=== PATIENT | male | born 1985 | race Caucasian/White ===

== ENCOUNTER → 2016-06-27 | Outpatient (CLI) | payer BC ==
--- NOTE | 2016-06-27 12:47 | REP ---
CT ABDOMEN AND PELVIS WITHOUT IV CONTRAST: CT abdomen and pelvis is performed without oral or IV contrast. Sagittal and coronal reconstruction images are performed. The visualized lung bases are clear. Liver, gallbladder, spleen, adrenals and pancreas are grossly unremarkable. No left renal calculi are seen and there is no left hydronephrosis. There is moderate right hydronephrosis caused by a 5 mm calculus in the distal right ureter at the level of the upper sacrum. The urinary bladder is not distended and not well evaluated. There is no abdominal aortic aneurysm with mild scattered atherosclerotic calcification. There is no adenopathy. There is no free air or free fluid. There is no bowel wall thickening. There is no evidence of appendicitis. IMPRESSION: There is a 5 mm calculus in the distal right ureter at the level of the sacrum. There is moderate right hydroureteronephrosis. Signed by Buzz García MD 06/27/2016 04:58 P
== END ==
LOC: M RAD 11:41
PROVIDERS: ATTEND Physician Assistant
DX: N13.1 Hydronephrosis with ureteral stricture, not elsewhere classified (principal); R11.10 Vomiting, unspecified; M54.5 Low back pain; R31.9 Hematuria, unspecified

== ENCOUNTER 2016-09-30 09:07 | Day surgery (SDC) | payer BC ==
[~2016-09-30] VITALS: Ht 165.1 cm; Wt 69.0 kg
[2016-09-30] MEDS ORDERED: NS 1,000 ML IV ONE ×2 (10:15→11:00)
[2016-09-30 10:29] LABS: BASO # 0.1 K/mm3 (0.0-0.2); BASO % 0.3 % (0.0-1.0); EOS # 0.3 K/mm3 (0.0-0.50); EOS % 1.3 % (0.0-3.0); LARGE UNSTAINED CELL # 0.2 K/mm3 (0.0-0.4); LARGE UNSTAINED CELL % 0.9 % (0.0-4.0); LYMPH # 1.6 K/mm3 (1.5-4.5); LYMPH % 6.9 % (24.0-44.0); MEAN CORPUSCULAR HEMOGLOBIN 29.9 pg (27.0-33.0); MEAN CORPUSCULAR HGB CONC 33.3 g/dl (32.0-36.5); MEAN CORPUSCULAR VOLUME 89.8 fl (80.0-96.0); MONO # 1.2 K/mm3 (0.0-0.8); MONO % 6.1 % (0.0-5.0); NEUTROPHILS % 84.5 % (36.0-66.0); PLATELET COUNT, AUTOMATED 328 k/mm3 (150-450); RED CELL DISTRIBUTION WIDTH 13.2 % (11.5-14.5)
--- NOTE | 2016-09-30 10:39 | REP ---
KUB, ONE VIEW: HISTORY: Mid right abdominal pain. Air is present in small and large intestine. There are no air fluid levels or dilated loops of intestine. There is no pneumoperitoneum. There is spina bifida occulta of S1. IMPRESSION: Nonspecific bowel gas pattern. Signed by Dannie Chua MD 09/30/2016 10:47 A
[2016-09-30 10:53] LABS: ALKALINE PHOSPHATASE 86 U/L (45-117); ALT/SGPT 43 U/L (12-78); ANION GAP 6 MEQ/L (8-16); AST/SGOT 18 U/L (15-37); BILIRUBIN,DIRECT 0.1 MG/DL (0.0-0.2); BILIRUBIN,TOTAL 0.8 MG/DL (0.2-1.0); BLOOD UREA NITROGEN 8 MG/DL (7-18); CALCIUM LEVEL 9.4 MG/DL (8.5-10.1); CARBON DIOXIDE LEVEL 30 MEQ/L (21-32); CHLORIDE LEVEL 104 MEQ/L (98-107); CREATININE FOR GFR 1.05 MG/DL (0.70-1.30); GLOMERULAR FILTRATION RATE > 60.0 (>60); GLUCOSE, FASTING 92 MG/DL (70-105); POTASSIUM SERUM 3.7 MEQ/L (3.5-5.1); SODIUM LEVEL 140 MEQ/L (136-145)
[2016-09-30] MEDS ORDERED: ISOVUE-370 76% 100ML VIAL (Q9967) As Ordered ONE (11:01)
[2016-09-30] MEDS ORDERED: PIPERACILLIN/TAZOBACTAM SOD 3.375 GM in D5W MINI-BAG PLUS 50 ML IV ONE (12:00)
--- NOTE | 2016-09-30 12:02 | REP ---
CT ABDOMEN AND PELVIS WITH IV CONTRAST: TECHNIQUE: Axial contrast enhanced images from the lung bases to the pubic symphysis using 100 mL Isovue 370 intravenous contrast material with multiplanar reformations. Visualized lung bases are clear. The liver, spleen, adrenals, pancreas and kidneys are normal in appearance. There is no adenopathy, free air or free fluid. There is dilatation of the appendix with diffuse thickening of its wall and surrounding streaky inflammation compatible with appendicitis. Mildly prominent right lower quadrant mesenteric lymph nodes are present. Urinary bladder is well distended and appears essentially unremarkable. There is a 5 mm calculus in the distal right ureter with minor right hydroureteronephrosis. IMPRESSION: Findings consistent with appendicitis with no free air or free fluid. There is a 5 mm calculus in the distal end of the right ureter with minor right hydroureteronephrosis. Signed by Buzz García MD 09/30/2016 01:42 P
[2016-09-30] MEDS ORDERED: TYLE325T5 PO (13:00)
[2016-09-30] MEDS ORDERED: LR 1,000 ML IV SCH (16:30)
[2016-09-30] MEDS: PIPERACILLIN/TAZOBACTAM SOD 3.375 GM in D5W MINI-BAG PLUS 50 ML IV SCH ×2 (17:00→23:05)
[2016-09-30] MEDS ORDERED: ZOSYN 3.375 GM VIAL (J2543) As Ordered ONE (18:19)
[2016-09-30 21:00] VITALS: BP 143/93
[2016-09-30] MEDS ORDERED: BUPIVACAINE HCL 0.25% 30 ML VIAL As Ordered ONE (23:03)
[2016-10-01] VITALS (8 sets, daily range): BP systolic 119–150; BP diastolic 58–88
[2016-10-01] MEDS ORDERED: ONDANSETRON 4MG/2ML VIAL (J2405) As Ordered ONE (01:28)
[2016-10-01] MEDS ORDERED: ROCURONIUM BROMIDE 50 MG/5 ML VIAL/SYRINGE As Ordered ONE (01:28)
[2016-10-01] MEDS ORDERED: fentaNYL 250 MCG/5 ML INJECTION (J3010) As Ordered ONE (01:28)
[2016-10-01] MEDS ORDERED: PROPOFOL 200 MG/20 ML VIAL As Ordered ONE (01:28)
[2016-10-01] MEDS ORDERED: LIDOCAINE 2% INJ 100 MG/5 ML SDV (FOR ANES.) As Ordered ONE (01:28)
[2016-10-01] MEDS ORDERED: KETOROLAC 60 MG/2 ML VIAL (J1885) As Ordered ONE (01:28)
[2016-10-01] MEDS ORDERED: dexameTHASONE 4 MG/ML 1ML VIAL (J1100) As Ordered ONE (01:28)
[2016-10-01] MEDS ORDERED: MIDAZOLAM INJ 2 MG/2 ML VIAL (J2250) As Ordered ONE (01:28)
[2016-10-01] MEDS ORDERED: GLYCOPYRROLATE INJ 0.2 MG/ML 2 ML VIAL As Ordered ONE ×2 (03:20→03:28)
[2016-10-01] MEDS ORDERED: NEOSTIGMINE 1MG/ML 5 ML SYRINGE (J2710) As Ordered ONE (03:20)
[2016-10-01] MEDS ORDERED: ACETAMINOPHEN TAB 650MG DOSE (2X325MG) PO PRN (04:15)
[2016-10-01] MEDS ORDERED: IBUPROFEN 600 MG TAB PO PRN (04:15)
[2016-10-01] MEDS ORDERED: fentaNYL 100 MCG/2 ML INJECTION (J3010) IV PRN (04:15)
[2016-10-01] MEDS ORDERED: ONDANSETRON 4MG/2ML VIAL (J2405) IV PRN ×2 (04:15)
[2016-10-01] MEDS ORDERED: MORPHINE 2 MG/ML 1ML SYRINGE IV PRN (04:15)
[2016-10-01] MEDS ORDERED: LR 1,000 ML IV SCH ×2 (04:15)
[2016-10-01] MEDS ORDERED: PERCOCET 5MG/325MG TAB PO PRN (04:15)
[2016-10-01] MEDS ORDERED: NORCO, ANEXSIA 5/325MG TABLET (HYDROcodone/ACETAMINOPHEN) PO PRN ×2 (04:15)
[2016-10-01] MEDS: PIPERACILLIN/TAZOBACTAM SOD 3.375 GM in D5W MINI-BAG PLUS 50 ML IV SCH ×2 (05:01→10:46)
--- NOTE | 2016-10-02 06:09 | RO ---
DATE OF PROCEDURE: 10/01/2016 PREOPERATIVE DIAGNOSIS: Appendicitis. POSTOPERATIVE DIAGNOSIS: Appendicitis. PROCEDURE PERFORMED: Laparoscopic appendectomy. SURGEON: Theodore Granados MD ANESTHESIA: General. INDICATIONS FOR THE PROCEDURE: Patient is a 31-year-old man who presented to the emergency department with a several-day history of some vague moderate abdominal pain, which became somewhat more pronounced in the lower abdomen. He presented to the emergency department for evaluation. His white blood cell count was elevated to 20,000, and a CT scan revealed a dilated, inflamed appendix consistent with appendicitis. He is now for a laparoscopic appendectomy. OPERATIVE PROCEDURE: The patient was placed under general endotracheal anesthesia. The patient's abdomen was prepped and draped in a sterile fashion. 0.25% Marcaine was infiltrated at the superior aspect of the umbilicus. A longitudinal midline incision was made and deepened through the fascia under direct vision. The peritoneum was opened bluntly. A Vibha cannula was inserted, and the abdomen was insufflated with carbon dioxide gas. The laparoscope was inserted. Initial examination showed normal-appearing loops of small and large bowel. The patient was tilted to a Trendelenburg position and rolled slightly to the left. Inspection in the right lower quadrant revealed a dilated, markedly hyperemic inflamed appearing appendix coiled just inferior to the cecum. A 5 mm trocar was placed in the left lower quadrant and a second 5 mm trocar was placed low in the midline. Graspers were inserted. The appendix was elevated and was clearly inflamed throughout its length. The base of the appendix did appear normal. The mesoappendix was grasped to elevate the appendix. Some filmy attachments around the base of the appendix were divided using the cautery. The mesoappendix was then carefully divided using the cautery to ensure adequate hemostasis. The remaining fibers of the mesoappendix were divided to expose the appendix all the way down to its juncture with the cecum. The 45 mm endoscopic linear cutter stapler was placed across the base of the appendix, closed and fired. The appendix was placed in an Endopouch. The right lower quadrant was irrigated and inspected. The staple line was good with no evidence of bleeding. No bleeding was identified elsewhere. The area was irrigated and the irrigant was removed. The patient was returned to a flat position. The abdomen was deflated and the trocars were removed. The appendix was recovered through the Vibha site. The peritoneum at the Vibha site was closed with a single #2-0 Vicryl suture. The fascia was closed with interrupted simple sutures of #2-0 Vicryl. The skin incisions were all closed with buried #5-0 Vicryl and Steri-Strips. Light dressings were applied. The patient tolerated the procedure well without apparent complication. He was awakened in the operating room, extubated and moved to the recovery room in stable condition. PORTIA
== END 2016-10-01 16:00 | disposition home or self-care (01) ==
LOC: M ED 10:31 → M SDC 14:59 → M PED 21:13 → M SDC 10-01 16:00
PROVIDERS: ATTEND Surgery
DX: K35.89 Other acute appendicitis (principal); Z88.2 Allergy status to sulfonamides; Z87.891 Personal history of nicotine dependence
CPT/HCPCS: 36415; 44970; 74000; 74177; 80048; 80076; 81001; 83690; 85025; 88304; 96374; 96375; 96376; 99284; J1100; J1885; J2250; J2405; J2543; J2710; J3010; Q9967

== ENCOUNTER → 2016-12-12 | Outpatient (CLI) | payer BC ==
[~2016-12-12] MED LIST: TYLE325T5 PO
--- NOTE | 2016-12-12 14:45 | REP ---
CHEST, TWO VIEWS: There is no evidence of acute infiltrate. No pleural effusion is seen. The heart is normal in size. The mediastinal silhouette is unremarkable. The visualized osseous structures are intact. IMPRESSION: No acute pulmonary disease. Signed by Buzz García MD 12/13/2016 12:30 P
== END ==
LOC: M WUC 13:50
PROVIDERS: ATTEND Physician Assistant
DX: R05 Cough (principal)